=== PATIENT | female | born 1985 | race Caucasian/White ===

== ENCOUNTER 2017-10-25 23:29 | Emergency (ER) | payer MEDICAID ==
[~2017-10-25] VITALS: Ht 162.6 cm; Wt 68.9 kg
[2017-10-25 23:51] VITALS: BP 101/61
[2017-10-25] MEDS ORDERED: AMOXICILLIN TRIHYDRATE 250 MG CAPSULE ONE (23:58)
[2017-10-25] MEDS ORDERED: IBUPROFEN 400 MG TABLET ONE (23:58)
[2017-10-26] MEDS ORDERED: IBUPROFEN 400 MG TABLET PO ONE
[2017-10-26] MEDS ORDERED: AMOXICILLIN TRIHYDRATE 250 MG CAPSULE PO ONE
== END 2017-10-26 00:07 | disposition home or self-care (01) ==
LOC: ER 23:32
DX: H66.91 Otitis media, unspecified, right ear (principal)
CPT/HCPCS: 99283; A4606; Z7610